=== PATIENT | male | born 1995 | race Asian ===

== ENCOUNTER 2017-07-18 20:14 | Emergency (ER) | payer OTHER ==
[~2017-07-18] VITALS: Ht 175.3 cm; Wt 83.9 kg
[2017-07-18 20:22] VITALS: Ht 175.3 cm; Wt 83.9 kg
[2017-07-18 20:56] VITALS: BP 132/68
== END 2017-07-18 20:56 | disposition home or self-care (01) ==
LOC: ED 20:14
DX: B02.8 Zoster with other complications (principal); I10 Essential (primary) hypertension